=== PATIENT | male | born 2000 | race Caucasian/White ===

== ENCOUNTER 2018-04-05 01:15 | Emergency (ER) | payer MEDICAID ==
[2018-04-05] MEDS: IBUPROFEN 600 MG TAB PO (03:46)
[2018-04-05] MEDS: DIPHTH/TET/ACEL PERTUSS (ADULT) 0.5 ML VIAL IM* (03:48)
== END 2018-04-05 04:38 | disposition home or self-care (01) ==
LOC: FTE 01:15
DX: S31.113A Laceration without foreign body of abdominal wall, right lower quadrant without penetration into peritoneal cavity, initial encounter (principal); S60.229A Contusion of unspecified hand, initial encounter; R40.2412 Glasgow coma scale score 13-15, at arrival to emergency department; X99.1XXA Assault by knife, initial encounter; Z23 Encounter for immunization
CPT/HCPCS: 90471; 90715; 99283-25

== ENCOUNTER 2018-04-11 04:24 | Emergency (ER) | payer MEDICAID ==
[2018-04-11 04:55] LABS: ADD MAN DIFF? NO
[2018-04-11] MEDS: morphine 4 MG/ML VIAL IV (04:56)
[2018-04-11] MEDS: SOD CHLORIDE 0.9% 1,000 ML IV (04:56)
[2018-04-11] MEDS: ONDANSETRON 4 MG INJ IV (04:56)
[2018-04-11 04:57] LABS: BASOPHIL # 0.2 10^3/ul (0.0-0.1); BASOPHILS % 1.4 % (0.0-2.0); EOSINOPHILS # 1.6 10^3/ul (0.0-0.5); EOSINOPHILS % 14.6 % (0.0-7.0); HEMATOCRIT 45.5 % (42.0-52.0); HEMOGLOBIN 15.6 g/dl (14.0-18.0); LYMPHOCYTES # 3.3 10^3/ul (0.8-2.9); LYMPHOCYTES % 30.2 % (18.0-55.0); MEAN CORPUSCULAR HEMOGLOBIN 31.2 pg (29.0-33.0); MEAN CORPUSCULAR HGB CONC 34.3 g/dl (32.0-37.0); MEAN PLATELET VOLUME 10.3 fl (7.4-10.4); MONOCYTES % 8.8 % (0.0-13.0); NEUTROPHIL # 4.9 10^3/ul (1.6-7.5); NEUTROPHILS % 44.5 % (30.0-74.0); PLATELET COUNT 308 10^3/UL (140-415)
[2018-04-11 04:57] LABS: WHITE BLOOD COUNT 11.1 10^3/ul (4.8-10.8)
[2018-04-11 05:14] LABS: ANION GAP 14 (8-16); BLOOD UREA NITROGEN 16 mg/dl (7-20); CALCIUM 9.2 mg/dl (8.4-10.2); CARBON DIOXIDE 28 mmol/L (21-31); CHLORIDE 106 mmol/L (97-110); CREATININE 0.96 mg/dl (0.61-1.24); GLUCOSE 107 mg/dl (70-220); SODIUM 144 mmol/L (135-144)
[2018-04-11 05:17] LABS: INR 0.93; PARTIAL THROMBOPLASTIN TIME 29.8 Sec (25.0-35.0); PROTIME 12.6 Sec (11.9-14.9)
[2018-04-11] MEDS: SOD CHLORIDE 0.9% 100 ML (05:33)
[2018-04-11] MEDS: IOHEXOL 300MG/ML 150 ML BTL (05:33)
[2018-04-11] MEDS: HYDROmorphONE 0.5 MG/0.5 ML SYG IV (06:02)
== END 2018-04-11 06:54 | disposition home or self-care (01) ==
LOC: E/R 04:24
DX: R10.11 Right upper quadrant pain (principal)
CPT/HCPCS: 36415; 71045; 74177; 80048; 85025; 85610; 85730; 96374; 96375; 99285-25

== ENCOUNTER 2018-07-05 11:00 | Emergency (ER) | payer MEDICAID ==
[2018-07-05] MEDS: ACETAMINOPHEN 325 MG TAB PO (13:01)
[2018-07-05] MEDS: KETOROLAC 60 MG INJ IM (13:01)
[2018-07-05 13:14] LABS: URINE BLOOD (Dip) POC Trace-intact (NEGATIVE); URINE GLUCOSE (Dip) POC Negative (NEGATIVE); URINE KETONES (Dip) POC Negative (NEGATIVE); URINE LEUKOCYTE EST (Dip) POC Negative (NEGATIVE); URINE NITRITE (Dip) POC Negative (NEGATIVE); URINE TOTAL PROTEIN POC Negative (NEGATIVE)
[2018-07-05 13:14] LABS: URINE PH (Dip) POC 6.5 (5.0-8.5)
== END 2018-07-05 13:36 | disposition home or self-care (01) ==
LOC: FTE 11:00
DX: R50.9 Fever, unspecified (principal)
CPT/HCPCS: 81003; 96372; 99284-25